=== PATIENT | male | born 1985 | race Two or more races ===

== ENCOUNTER 2018-05-02 09:41 | Emergency (ER) | payer SELFPAY ==
[2018-05-02] MEDS ORDERED: Sodium Chloride 0.9% 10 ML Syringe FLUSH PRN (09:44)
[2018-05-02] MEDS ORDERED: Sodium Chloride 0.9% 1,000 ML IV ONE ×2 (09:45→11:50)
[2018-05-02] MEDS ORDERED: Meperidine PF 100 MG/ML Syringe IVPUSH ONE (09:45)
[2018-05-02] MEDS ORDERED: Ondansetron 4 MG/2 ML SDV IVPUSH ONE (09:46)
[2018-05-02] MEDS ORDERED: cefTRIAXone 1 GM Vial IVPUSH ONE (10:30)
[2018-05-02 10:56] LABS: CHLORIDE,CL 93 mmol/L (98-107)
[2018-05-02 10:57] LABS: ANION GAP 12.2 mmol/L (10-20); SODIUM,NA 128 mmol/L (136-145)
--- NOTE | 2018-05-02 11:06 | EDM.PDOC ---
ED HPI GENERAL MEDICAL PROBLEM - General Chief Complaint: Fever Stated Complaint: Headache, Fever, RLQ pain; chills Time Seen by Provider: 05/02/18 09:42 Source of Information: Reports: Patient, Old Records, RN, RN Notes Reviewed History Limitations: Reports: No Limitations - History of Present Illness INITIAL COMMENTS - FREE TEXT/NARRATIVE: Patient presents to the ED at [facility] with headache, chills, fever, and nausea. He states his symptoms started last weekend. He has not been able to drink due to nausea. No chest pain or SOB. No cough. Denies any UTI symptoms. Abdominal pain is right lower lateral without radiation. No focal neurological deficits. Denies any problems. Has vomited several times over the past couple days. He was, however, able to eat cereal this AM. Patient was seen by me in clinic yesterday. Symptoms were vague and non- descript. CBC in clinic showed a WBC of 21.7. Etiology of symptoms was not found. Patient was prophylactically started on a ZPak. He did not order picker this medication yet. Onset Date: 04/26/18 Right Abdomen Pain Score (Numeric/FACES): 10 - Related Data Allergies Allergy/AdvReac Type Severity Reaction Status Date / Time No Known Allergies Allergy Verified 05/02/18 09:49 Home Meds: Home Meds . [No Known Home Meds] 05/02/18 [History] Past Medical History - Past Health History Medical/Surgical History: Denies Medical/Surgical History Social & Family History - Tobacco Use Smoking Status *Q: Never Smoker - Recreational Drug Use Recreational Drug Use: No ED ROS GENERAL - Review of Systems Review Of Systems: See Below Constitutional: Reports: Fever, Chills, Fatigue, Decreased Appetite. Denies: Weakness HEENT: Reports: No Symptoms Respiratory: Denies: Shortness of Breath, Cough Cardiovascular: Denies: Chest Pain, Palpitations GI/Abdominal: Reports: Abdominal Pain, Nausea, Vomiting. Denies: Constipation, Diarrhea Skin: Reports: No Symptoms Neurological: Reports: No Symptoms ED EXAM, SEPSIS - Physical Exam Exam: See Below Exam Limited By: No Limitations General Appearance: Alert, No Apparent Distress Eye Exam: Left Eye: Normal Inspection, Periorbital Changes Ears: Normal External Exam, Normal Canal, Normal TMs Throat/Mouth: Normal Inspection, Normal Oropharynx, No Airway Compromise Head: Atraumatic, Normocephalic Neck: Supple Respiratory/Chest: No Respiratory Distress, Lungs Clear, Normal Breath Sounds Cardiovascular: Normal Peripheral Pulses, Regular Rate, Rhythm, Tachycardia Peripheral Pulses: 2+: Radial (L), Radial (R) GI/Abdominal Exam: Normal Bowel Sounds, Soft, Non-Tender Neurological: Alert, Oriented Skin: Warm, Dry, Intact, Normal Color Course - Vital Signs Last Recorded V/S: Last Vital Signs Temp 39.1 C H 05/02/18 10:53 Pulse 110 H 05/02/18 10:53 Resp 18 05/02/18 10:53 BP 119/72 05/02/18 10:53 Pulse Ox 100 05/02/18 10:53 - Orders/Labs/Meds Orders: Active Orders 24 hr Category Date Time Status Abdomen Pelvis wo Cont [CT] Stat Exams 05/02/18 10:58 Taken Chest 2V [CR] Stat Exams 05/02/18 09:44 Taken Head wo Cont [CT] Stat Exams 05/02/18 09:43 Taken CULTURE BLOOD [BC] Stat Lab 05/02/18 10:17 Received CULTURE BLOOD [BC] Stat Lab 05/02/18 10:23 Received UA W/MICROSCOPIC [URIN] Stat Lab 05/02/18 10:23 Ordered Sodium Chloride 0.9% [Saline Flush] Med 05/02/18 09:44 Active 10 ml FLUSH ASDIRECTED PRN Blood Culture x2 Reflex Set [OM.PC] Stat Oth 05/02/18 09:43 Ordered Peripheral IV Insertion Adult [OM.PC] Routine Oth 05/02/18 09:44 Ordered Medication Orders Sodium Chloride (Saline Flush) 10 ml FLUSH ASDIRECTED PRN PRN Reason: Keep Vein Open Labs: Laboratory Tests 05/02/18 05/02/18 05/02/18 Range/Units 10:17 10:17 10:17 WBC 13.9 H (4.0-10.0) x10^3/uL RBC 4.38 L (4.5-6.0) x10^6/uL Hgb 13.2 L (14.0-18.0) g/dL Hct 37.1 L (40.0-52.0) % MCV 84.7 (78.0-93.0) fL MCH 30.1 (26.0-32.0) pg MCHC 35.6 (32.0-36.0) g/dL RDW Coeff of Kelsey 12.4 (10.0-15.0) % Plt Count 215 (130-400) x10^3/uL Neut % (Auto) 86.8 H (50.0-80.0) % Lymph % (Auto) 5.1 L (25.0-50.0) % Thomas % (Auto) 8.0 (2.0-11.0) % Eos % (Auto) 0.0 (0.0-4.0) % Baso % (Auto) 0.1 L (0.2-1.2) % Sodium 128 L* (136-145) mmol/L Potassium 3.2 L (3.5-5.1) mmol/L Chloride 93 L (98-107) mmol/L Carbon Dioxide 26 (21-32) mmol/L Anion Gap 12.2 (10-20) mmol/L BUN 16 (7-18) mg/dL Creatinine 1.6 H (0.70-1.30) mg/dL Est Cr Clr Drug Dosing TNP Estimated GFR (MDRD) 51 Glucose 109 H (74-106) mg/dL Lactic Acid 2.6 H* (0.4-2.0) mmol/L Calcium 9.0 (8.5-10.1) mg/dL Corrected Calcium 9.48 (8.5-10.1) mg/dL Total Bilirubin 1.1 H (0.2-1.0) mg/dL AST 39 H (15-37) U/L ALT 57 (16-63) U/L Alkaline Phosphatase 104 (46-116) U/L C-Reactive Protein 49.0 H (<=0.9) mg/dL Total Protein 8.8 H (6.4-8.2) g/dL Albumin 3.4 (3.4-5.0) g/dL Globulin 5.4 Albumin/Globulin Ratio 0.63 Urine Color (YELLOW) Urine Appearance (CLEAR) Urine pH (5.0-8.0) Ur Specific Penelope Urine Protein (NEGATIVE) mg/dL Urine Glucose (UA) (NEGATIVE) mg/dL Urine Ketones (NEGATIVE) mg/dL Urine Occult Blood (NEGATIVE) Urine Nitrite (NEGATIVE) Urine Bilirubin (NEGATIVE) Urine Urobilinogen (0.2) EU/dL Ur Leukocyte Esterase (NEGATIVE) Urine RBC (NOT SEEN) /HPF Urine WBC (NOT SEEN) /HPF Ur Squamous Epith Cells (NEGATIVE) /HPF Urine Bacteria (NEGATIVE) /HPF Urine Mucus (NEGATIVE) /LPF 05/02/18 Range/Units 10:23 WBC (4.0-10.0) x10^3/uL RBC (4.5-6.0) x10^6/uL Hgb (14.0-18.0) g/dL Hct (40.0-52.0) % MCV (78.0-93.0) fL MCH (26.0-32.0) pg MCHC (32.0-36.0) g/dL RDW Coeff of Kelsey (10.0-15.0) % Plt Count (130-400) x10^3/uL Neut % (Auto) (50.0-80.0) % Lymph % (Auto) (25.0-50.0) % Thomas % (Auto) (2.0-11.0) % Eos % (Auto) (0.0-4.0) % Baso % (Auto) (0.2-1.2) % Sodium (136-145) mmol/L Potassium (3.5-5.1) mmol/L Chloride (98-107) mmol/L Carbon Dioxide (21-32) mmol/L Anion Gap (10-20) mmol/L BUN (7-18) mg/dL Creatinine (0.70-1.30) mg/dL Est Cr Clr Drug Dosing Estimated GFR (MDRD) Glucose (74-106) mg/dL Lactic Acid (0.4-2.0) mmol/L Calcium (8.5-10.1) mg/dL Corrected Calcium (8.5-10.1) mg/dL Total Bilirubin (0.2-1.0) mg/dL AST (15-37) U/L ALT (16-63) U/L Alkaline Phosphatase (46-116) U/L C-Reactive Protein (<=0.9) mg/dL Total Protein (6.4-8.2) g/dL Albumin (3.4-5.0) g/dL Globulin Albumin/Globulin Ratio Urine Color Yellow (YELLOW) Urine Appearance Clear (CLEAR) Urine pH 6.5 (5.0-8.0) Ur Specific Penelope 1.010 Urine Protein 100 H (NEGATIVE) mg/dL Urine Glucose (UA) Negative (NEGATIVE) mg/dL Urine Ketones Negative (NEGATIVE) mg/dL Urine Occult Blood Moderate H (NEGATIVE) Urine Nitrite Negative (NEGATIVE) Urine Bilirubin Negative (NEGATIVE) Urine Urobilinogen 0.2 (0.2) EU/dL Ur Leukocyte Esterase Moderate H (NEGATIVE) Urine RBC 0-5 (NOT SEEN) /HPF Urine WBC 20-30 H (NOT SEEN) /HPF Ur Squamous Epith Cells Not seen (NEGATIVE) /HPF Urine Bacteria Rare (NEGATIVE) /HPF Urine Mucus Not seen (NEGATIVE) /LPF Meds: Medications Generic Name Dose Route Start Last Admin Trade Name Freq PRN Reason Stop Dose Admin Sodium Chloride 10 ml 05/02/18 09:44 Saline Flush FLUSH ASDIRECTED PRN Keep Vein Open Discontinued Medications Generic Name Dose Route Start Last Admin Trade Name Freq PRN Reason Stop Dose Admin Ceftriaxone Sodium 1 gm 05/02/18 10:30 05/02/18 10:43 Rocephin IVPUSH 05/02/18 10:31 1 gm STAT ONE Administration Sodium Chloride 1,000 mls @ 999 mls/hr 05/02/18 09:45 05/02/18 10:15 Normal Saline IV 05/02/18 10:45 999 mls/hr ONETIME ONE Administration Sodium Chloride 1,000 mls @ 999 mls/hr 05/02/18 11:50 05/02/18 11:50 Normal Saline IV 05/02/18 12:50 999 mls/hr ONETIME ONE Administration Meperidine HCl 50 mg 05/02/18 09:45 05/02/18 10:21 Demerol IVPUSH 05/02/18 09:46 50 mg ONETIME ONE Administration Morphine Sulfate 2 mg 05/02/18 11:50 05/02/18 11:55 Morphine IVPUSH 05/02/18 11:51 2 mg ONETIME ONE Administration Ondansetron HCl 4 mg 05/02/18 09:46 05/02/18 10:15 Zofran IVPUSH 05/02/18 09:47 4 mg ONETIME ONE Administration - Radiology Interpretation Free Text/Narrative:: CT Head: No plain evidence of acute intracranial process CXR: Negative for pneumonia or other significant cardiopulmonary abnormality See scanned reports in EMR CT Results Date: 05/02/18 CT Results Time: 10:31 Departure - Departure Time of Disposition: 12:55 Disposition: Home, Self-Care 01 Condition: Good Clinical Impression: Pyelonephritis UTI (urinary tract infection) Qualifiers: Urinary tract infection type: acute cystitis Hematuria presence: with hematuria Qualified Code(s): N30.01 - Acute cystitis with hematuria - Discharge Information *PRESCRIPTION DRUG MONITORING PROGRAM REVIEWED*: Not Applicable *COPY OF PRESCRIPTION DRUG MONITORING REPORT IN PATIENT SHADY: Not Applicable Instructions: Urinary Tract Infection, Adult, Pyelonephritis, Adult Referrals: PCP,Not In Area [Primary Care Provider] - Forms: ED Department Discharge Additional Instructions: 1. LOTS and LOTS of water 2. Take antibiotics for the full 7 days, even of you are feeling better 3. Call us with any questions - Problem List Review Problem List Initiated/Reviewed/Updated: Yes - My Orders Last 24 Hours: My Active Orders 05/02/18 09:43 Head wo Cont [CT] Stat Blood Culture x2 Reflex Set [OM.PC] Stat 05/02/18 09:44 Chest 2V [CR] Stat Sodium Chloride 0.9% [Saline Flush] 10 ml FLUSH ASDIRECTED PRN Peripheral IV Insertion Adult [OM.PC] Routine 05/02/18 10:17 CULTURE BLOOD [BC] Stat 05/02/18 10:23 CULTURE BLOOD [BC] Stat UA W/MICROSCOPIC [URIN] Stat 05/02/18 10:58 Abdomen Pelvis wo Cont [CT] Stat - Assessment/Plan Last 24 Hours: My Active Orders 05/02/18 09:43 Head wo Cont [CT] Stat Blood Culture x2 Reflex Set [OM.PC] Stat 05/02/18 09:44 Chest 2V [CR] Stat Sodium Chloride 0.9% [Saline Flush] 10 ml FLUSH ASDIRECTED PRN Peripheral IV Insertion Adult [OM.PC] Routine 05/02/18 10:17 CULTURE BLOOD [BC] Stat 05/02/18 10:23 CULTURE BLOOD [BC] Stat UA W/MICROSCOPIC [URIN] Stat 05/02/18 10:58 Abdomen Pelvis wo Cont [CT] Stat Assessment:: UTI with hematuria chills RHIANNA with Pyelonephritis Plan: Labs and xray discussed with patient. Start Cipro for 7 days; lots of water. No work until Sunday. Need to rest.
[2018-05-02] MEDS ORDERED: Morphine 2 MG/ML Syringe IVPUSH ONE (11:50)
== END 2018-05-02 13:28 | disposition home or self-care (01) ==
LOC: VM.ED 09:41
DX: N12 Tubulo-interstitial nephritis, not specified as acute or chronic (principal)
CPT/HCPCS: 36415; 70450; 71046; 74176; 80053; 81001; 83605; 85025; 86140; 87040; 87186; 96361; 96374; 96375; 99284; J0696; J2175; J2270; J2405; J7030; 87077